=== PATIENT | male | born 1995 | race African-American/Black ===

== ENCOUNTER 2021-06-21 12:13 | Emergency (ER) | payer OTHER ==
[~2021-06-21] VITALS: Ht 180.3 cm; Wt 74.8 kg
[2021-06-21 12:32] VITALS: BP 134/71
--- NOTE | 2021-06-21 12:40 | NUR ---
LOWER BACK PAIN FOR MONTHS, WORST THE PAST 3 WEEKS. PATIENT A/OX3, BREATHING EVEN AND UNLABORED, NO SOB NOTED.
--- NOTE | 2021-06-21 14:58 | NUR ---
PATIENT UPSET, LEFT AFTER BEING SEEN BY DR. VILLARREAL. INFORMED PATIENT HE HAS MEDICATIONS BUT PATIENT REFUSED AND WALKED OUT OF THE ER. DR. VILLARREAL MADE AWARE.
[2021-06-21] MEDS ORDERED: KETOROLAC TROMETHAMINE INJ 60 MG/2 ML VIAL IM ONE (15:00)
== END 2021-06-21 15:02 | disposition left against medical advice (07) ==
LOC: ER 12:13
DX: M54.5 Low back pain (principal); G89.29 Other chronic pain